=== PATIENT | female | born 1965 | race Hispanic/Latino ===

== ENCOUNTER 2018-12-12 19:35 | Emergency (ER) | payer OTHER ==
--- NOTE | 2018-12-12 20:49 | RAD REPORT ---
EXAM DESCRIPTION: RAD - Foot Left 3 View - 12/12/2018 8:39 pm CLINICAL HISTORY: Left Foot pain FINDINGS: No fracture or dislocation is seen. Small to moderate calcaneal spur
--- NOTE | 2018-12-12 21:09 | ER ---
Nurse's Notes [facility] Name: Lucy Talley Age: 53 yrs Sex: Female : 1965 Arrival Date: 12/12/2018 Time: 19:42 Bed 11 Private MD: Diagnosis: Plantar fascial fibromatosis;Calcaneal spur, left foot Presentation: 12/12 19:58 Presenting complaint: Patient states: "My left heel has been hurting for some time now, jd3 but I have been dealing with it. recently it has been hurting me to the point it is hard to walk.". Transition of care: patient was not received from another setting of care. Onset of symptoms was December 08, 2018. Risk Assessment: Do you want to hurt yourself or someone else? Patient reports no desire to harm self or others. Initial Sepsis Screen: Does the patient meet any 2 criteria? No. Patient's initial sepsis screen is negative. Does the patient have a suspected source of infection? No. Patient's initial sepsis screen is negative. Care prior to arrival: None. 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 - Social history:: Smoking status: Patient/guardian denies using tobacco. - Ebola Screening: : Patient negative for fever greater than or equal to 101.5 degrees Fahrenheit, and additional compatible Ebola Virus Disease symptoms. Screenin:20 Abuse screen: Denies threats or abuse. Denies injuries from another. Nutritional lp1 screening: No deficits noted. Tuberculosis screening: No symptoms or risk factors identified. Fall Risk None identified. Assessment: 20:30 General: Appears uncomfortable, Behavior is calm. Pain: Complains of pain in heel of lp1 left foot Pain currently is 8 out of 10 on a pain scale. Quality of pain is described as sharp, Aggravated by increased activity, weight bearing. Neuro: No deficits noted. Cardiovascular: No deficits noted. Respiratory: No deficits noted. GI: No deficits noted. : No deficits noted. EENT: No deficits noted. Derm: Skin is pink, warm \\T\\ dry. Musculoskeletal: No deficits noted. Vital Signs: 20:02 BP 165 / 77; Pulse 86; Resp 17 S; Temp 97.8(O); Pulse Ox 99% on R/A; Weight 70.31 kg jd3 (R); Height 5 ft. 3 in. (160.02 cm) (R); Pain 10/10; 20:02 Body Mass Index 27.46 (70.31 kg, 160.02 cm) jd3 ED Course: 19:42 Patient arrived in ED. es 20:00 Triage completed. jd3 20:02 Arm band placed on. jd3 20:19 Jeny Amos, KANG is Primary Nurse. lp1 20:20 Patient has correct armband on for positive identification. lp1 20:40 Foot Left 3 View XRAY In Process Unspecified. EDMS 20:49 Amrik Walters NP is PHCP. pm1 20:49 Humberto Cotto MD is Attending Physician. pm1 21:28 No provider procedures requiring assistance completed. Patient did not have IV access lp1 during this emergency room visit. Crutch training done. Administered Medications: 21:15 Drug: predniSONE 60 mg Route: PO; lp1 21:27 Follow up: Response: Medication administered at discharge. lp1 21:15 Drug: Ulmer 5 mg-325 mg 1 tabs Route: PO; lp1 21:28 Follow up: Response: Medication administered at discharge. lp1 Outcome: 21:08 Discharge ordered by . pm1 21:29 Discharged to home with crutches, with significant other. lp1 21:29 Condition: good 21:29 Discharge instructions given to patient, Instructed on discharge instructions, follow up and referral plans. medication usage, Demonstrated understanding of instructions, follow-up care, medications, Prescriptions given X 2. 21:29 Patient left the ED. lp1 Signatures: Dispatcher [employer] Ioana Anglin Laura, RN RN lp1 Amrik Walters, CINDY EMERGENCY SERVICES PROFESSIONAL pm1 Dion Haynes RN RN jd3 Corrections: (The following items were deleted from the chart) 20:20 19:58 Presenting complaint: Patient states: "My left heal has been hurting for some jd3 time now, but I have been dealing with it. recently it has been hurting me to the point it is hard to walk." jd3
--- NOTE | 2018-12-12 21:09 | EDPHYS ---
Physician Documentation [facility] Name: Lucy Talley Age: 53 yrs Sex: Female : 1965 Arrival Date: 12/12/2018 Time: 19:42 Bed 11 Private MD: ED Physician Humberto Cotto HPI: 12/12 20:50 This 53 yrs old Female presents to ER via Wheelchair with complaints of Heel pm1 Pain. 12/13 03:40 The patient presents with pain. The complaints affect the left foot, heel of left foot. pm1 Context: The problem was sustained at an unknown location, resulted from an unknown cause, the patient can fully bear weight, the patient is able to ambulate. Onset: The symptoms/episode began/occurred 1 month(s) ago. Modifying factors: The symptoms are alleviated by nothing, the symptoms are aggravated by weight bearing. Associated signs and symptoms: Pertinent negatives: calf tenderness, numbness, tingling. Severity of symptoms: in the emergency department the symptoms are actually worse. The patient has not experienced similar symptoms in the past. The patient has not recently seen a physician. 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 - Social history:: Smoking status: Patient/guardian denies using tobacco. - Ebola Screening: : Patient negative for fever greater than or equal to 101.5 degrees Fahrenheit, and additional compatible Ebola Virus Disease symptoms. ROS: 12/13 03:40 MS/extremity: Positive for pain, of the heel of left foot. pm1 Constitutional: Negative for fever, chills, and weight loss, Eyes: Negative for injury, pain, redness, and discharge, ENT: Negative for injury, pain, and discharge, Neck: Negative for injury, pain, and swelling, Cardiovascular: Negative for chest pain, palpitations, and edema, Respiratory: Negative for shortness of breath, cough, wheezing, and pleuritic chest pain, Abdomen/GI: Negative for abdominal pain, nausea, vomiting, diarrhea, and constipation, Back: Negative for injury and pain, : Negative for injury, bleeding, discharge, and swelling, Skin: Negative for injury, rash, and discoloration, Neuro: Negative for headache, weakness, numbness, tingling, and seizure. Exam: 03:40 Constitutional: This is a well developed, well nourished patient who is awake, alert, pm1 and in no acute distress. Head/Face: Normocephalic, atraumatic. Chest/axilla: Normal chest wall appearance and motion. Nontender with no deformity. No lesions are appreciated. Cardiovascular: Regular rate and rhythm with a normal S1 and S2. No gallops, murmurs, or rubs. Normal PMI, no JVD. No pulse deficits. Respiratory: Lungs have equal breath sounds bilaterally, clear to auscultation and percussion. No rales, rhonchi or wheezes noted. No increased work of breathing, no retractions or nasal flaring. Back: No spinal tenderness. No costovertebral tenderness. Full range of motion. Skin: Warm, dry with normal turgor. Normal color with no rashes, no lesions, and no evidence of cellulitis. 03:40 Musculoskeletal/extremity: Extremities: grossly normal except: noted in the arch of left foot and heel of left foot: pain, tenderness. Vital Signs: 12/12 20:02 BP 165 / 77; Pulse 86; Resp 17 S; Temp 97.8(O); Pulse Ox 99% on R/A; Weight 70.31 kg jd3 (R); Height 5 ft. 3 in. (160.02 cm) (R); Pain 10/10; 20:02 Body Mass Index 27.46 (70.31 kg, 160.02 cm) jd3 MDM: 20:49 Patient medically screened. pm1 21:06 Data reviewed: vital signs. Data interpreted: Pulse oximetry: on room air is 99 %. pm1 Interpretation: normal. Counseling: I had a detailed discussion with the patient and/or guardian regarding: the historical points, exam findings, and any diagnostic results supporting the discharge/admit diagnosis, radiology results, the need for outpatient follow up, to return to the emergency department if symptoms worsen or persist or if there are any questions or concerns that arise at home. 12/12 20:20 Order name: Foot Left 3 View XRAY; Complete Time: 20:50 lp1 12/12 21:21 Order name: Crutches; Complete Time: 21:28 pm1 Administered Medications: 21:15 Drug: predniSONE 60 mg Route: PO; lp1 21:27 Follow up: Response: Medication administered at discharge. lp1 21:15 Drug: Dane 5 mg-325 mg 1 tabs Route: PO; lp1 21:28 Follow up: Response: Medication administered at discharge. lp1 Disposition: 12/13 09:07 Co-signature as Attending Physician, Humberto Cotto MD I agree with the assessment and lauryn plan of care. Disposition: 12/12/18 21:08 Discharged to Home. Impression: Plantar fascial fibromatosis, Calcaneal spur, left foot. - Condition is Stable. - Discharge Instructions: Heel Spur, Plantar Fasciitis. - Prescriptions for Tylenol- Codeine #3 300-30 mg Oral Tablet - take 2 tablets by ORAL route every 6 hours As needed; 20 tablet. Medrol (Vicente) 4 mg Oral Tablets, Dose Pack - take 1 tablet by ORAL route as directed - follow package instructions; 1 packet. - Medication Reconciliation Form, Thank You Letter, Antibiotic Education, Prescription Opioid Use form. - Follow up: Emergency Department; When: As needed; Reason: Worsening of condition. Follow up: Private Physician; When: 2 - 3 days; Reason: Recheck today's complaints, Continuance of care, Re-evaluation by your physician. - Problem is new. - Symptoms have improved. Signatures: Dispatcher [employer] Humberto Velasco MD MD cha Pena, Laura RN RN lp1 Amrik Walters NP CAN FEEDER pm1 Dion Haynes RN RN jd3 Corrections: (The following items were deleted from the chart) 12/12 21:29 21:08 12/12/2018 21:08 Discharged to Home. Impression: Plantar fascial fibromatosis; lp1 Calcaneal spur, left foot. Condition is Stable. Forms are Medication Reconciliation Form, Thank You Letter, Antibiotic Education, Prescription Opioid Use. Follow up: Emergency Department; When: As needed; Reason: Worsening of condition. Follow up: Private Physician; When: 2 - 3 days; Reason: Recheck today's complaints, Continuance of care, Re-evaluation by your physician. Problem is new. Symptoms have improved. pm1
[2018-12-12] MEDS ORDERED: HYDROCODONE/APAP 5/325 MG TAB ONE (21:27)
[2018-12-12] MEDS ORDERED: predniSONE 20 MG TAB ONE (21:27)
== END 2018-12-12 21:29 | disposition home or self-care (01) ==
LOC: EDBD 19:35 → ER 19:35
DX: M72.2 Plantar fascial fibromatosis (principal); M77.32 Calcaneal spur, left foot
CPT/HCPCS: 99284; J7512

== ENCOUNTER 2020-04-08 11:27 | Emergency (ER) | payer OTHER ==
--- OUTSIDE RECORDS SUMMARY | 2020-04-08 12:09 | XMS REPORT ---
:1965 Author Organization [employer] Care Team Providers Name Role Phone FranciscoZain baker Provider Role Unavailable Allergies, Adverse Reactions, Alerts Substance Reaction Event Type Latex Info Not Available Drug Allergy Problems Problem Type Condition Code Onset Dates Condition Statu s Problem Allergic rhinitis J30.9 Active Problem Seasonal allergies J30.2 Active Problem Mixed hyperlipidemia E78.2 Active Assessment Arthritis of knee, right M17.11 Act gary Assessment Pain in joint of right knee M25.561 Active Problem Vitamin D deficiency E55.9 Active Problem Abnormal mammogram R92.8 Active Problem Other chronic pain G89.29 Active Problem Arthritis of knee, right M17.11 Act gary Problem High cholesterol E78.00 Active Problem Cervical radiculopathy due to M47.22 Active degenerative joint disease of spine Problem Degenerative cervical disc M50.30 A ctive Problem Carpal tunnel syndrome on both G56.03 Active sides Medications Medication Code Code Instructions Start End Status Dosage System Date Date Naproxen ND 44032601697 500 MG Orally Active 1 tab let with every 12 hrs food or mil k as needed Ergocalciferol ND 55303598821 79954 UNIT December Active 1 capsule Orally once a 09, 07, week 2019 2019 Meloxicam ND 66866838505 15 MG Orally December Active 1 tab let Once a day prn 06, 04, pain 2020 2019 Diclofenac Sodium ND 08318853278 1 % December Active 2 gram Transdermal , 04, application Three times a 2019 2019 to affecte d day area Tylenol # 3 NDC 0 300/30mg PO Active one tab once a day PRN Results No Known Results Summary Purpose [employer]ClinicalWorks Submission
--- OUTSIDE RECORDS SUMMARY | 2020-04-08 12:09 | XMS REPORT ---
:1965 Author Organization [employer] Care Team Providers Name Role Phone Jean-Baptiste, Na Provider Role Unavailable Allergies No Known Allergies Problems Problem Type Condition Code Onset Dates Condition Statu s Problem Allergic rhinitis J30.9 Active Problem Seasonal allergies J30.2 Active Problem Mixed hyperlipidemia E78.2 Active Assessment Left knee pain, unspecified M25.562 Active chronicity Problem Vitamin D deficiency E55.9 Active Problem Abnormal mammogram R92.8 Active Problem Other chronic pain G89.29 Active Problem Arthritis of knee, right M17.11 Act gary Problem High cholesterol E78.00 Active Problem Cervical radiculopathy due to M47.22 Active degenerative joint disease of spine Problem Degenerative cervical disc M50.30 A ctive Problem Carpal tunnel syndrome on both G56.03 Active sides Medications No Known Medications Results No Known Results Summary Purpose eClinicalWorks Submission
--- OUTSIDE RECORDS SUMMARY | 2020-04-08 12:09 | XMS REPORT ---
:1965 Author Organization [employer] Care Team Providers Name Role Phone Jean-Baptiste, Na Provider Role Unavailable Allergies No Known Allergies Problems Problem Type Condition Code Onset Dates Condition Statu s Problem Allergic rhinitis J30.9 Active Problem Seasonal allergies J30.2 Active Problem Mixed hyperlipidemia E78.2 Active Assessment Abnormal finding on breast imaging R92.8 Active Problem Vitamin D deficiency E55.9 Active Problem Abnormal mammogram R92.8 Active Problem Other chronic pain G89.29 Active Problem Arthritis of knee, right M17.11 Act gary Problem High cholesterol E78.00 Active Problem Cervical radiculopathy due to M47.22 Active degenerative joint disease of spine Problem Degenerative cervical disc M50.30 A ctive Problem Carpal tunnel syndrome on both sides G56.03 Active Medications No Known Medications Results No Known Results Summary Purpose eClinicalWorks Submission
--- OUTSIDE RECORDS SUMMARY | 2020-04-08 12:09 | XMS REPORT | Continuity of Care Document ---
:1965 Author Organization [facility] t Address [address] [place] [address] Care Team Providers Name Role Phone Unavailable Unavailable Unavailable Problems This patient has no known problems. Allergies, Adverse Reactions, Alerts Allergy Allergy Status Severity Reaction(s) Onset Inactive Treating Comm ents Source Name Type Date Date Clinician Latex Adverse Active Info Not [facility] Reaction Available [facility] Medications Ordered Filled Start Stop Current Ordering Indication Dosage Frequency Signature Comments Components Source Medication Medication Date Date Medication? Clinician (SIG) Name Name MethylPREDN MethylPREDN Yes Zain as [facility] ISolone ISolone 02-19 Francisco directed [facility] Ergocalcife Ergocalcife 2020- No Zain [address] [facility] rol rol 12-20 Francisco [facility] Diclofenac Diclofenac 2019-0 2020- No Zain [address] [facility] Sodium Sodium 12-17 Francisco applicatio [facility] - 00:00: 00:00 n to [facility] 00 :00 affected l area Out[facility] ent Clinics Naproxen Naproxen Yes Zain [address] [facility] Francisco with food [facility] - or milk as [facility] needed [facility] Tylenol # 3 Tylenol # 3 Yes Zain one tab [facility] Francisco [facility] Procedures This patient has no known procedures. Encounters Start End Encounter Admission Attending Care Care Encounter Source Date/Time Date/Time Type Type Clinicians Facility Department ID 2020-03-27 2020-03-27 Outpatient [facility] [id number] [facility] 2020-03-25 2020-03-25 [facility] [id number] 2020-03-18 2020-03-18 [facility] [id number] [facility] 2020-03-11 2020-03-11 [facility] [id number] [facility] 2020-03-01 2020-03-01 [facility] [id number] [facility] 2020-02-28 2020-02-28 [facility] [id number] [facility] 15[facility]23:00 15:23:00 [facility] 2020-02-26 2020-02-26 [facility] [id number] [facility] 16:34:00 16:34:00 t [facility] 2020-02-21 2020-02-21 [facility] [id number] 12:58:00 12:58:00 t [facility] 2020-02-20 2020-02-20 [facility] [id number] 08:00:00 08:00:00 t [facility] 2020-01-16 2020-01-16 [facility] [id number] 12:38:00 12:38:00 t [employer] [facility] ent [facility] 2020-01-09 2020-01-09 [facility] [id number] 14:46:00 14:46:00 t [employer]mer [employer] SARL [facility] Medicine Medicine Outpati ent Clinics 2020-01-08 2020-01-08 [facility] [id number] 08:30:00 08:30:00 t [facility] ent Clinics 2019-12-21 2019-12-21 [facility] [id number] [address] 04:23:00 04:23:00 t [employer] SARL [facility] Medicine l Medicine Outpati ent Clinics 2019-12-18 2019-12-18 [facility] [id number] 16:20:00 16:20:00 t Aceris [employer] [facility] Medicine Medicine Outpati ent Clinics 2019-11-30 2019-11-30 [facility] [id number] [address] 19:31:00 19:31:00 t Ulmer [employer] Sidelines [facility] Medicine Medicine Outpati ent Clinics 2019-11-02 2019-11-02 [facility] [id number] 15:10:00 15:10:00 t Aceris 3D Inspection [facility] Medicine Outpati ent Clinics 2019-06-02 2019-06-02 [facility] [id number] [facility] 16:00:00 16:00:00 t [employer] Sidelines [facility] Medicine Medicine Outpati ent Clinics 2019-05-05 2019-05-05 [facility] [id number] [facility] 16:20:00 16:20:00 t Ulmer [employer] Sidelines [facility] Medicine Outpati ent Clinics 2019-04-27 2019-04-27 [facility] [id number] [facility] 17:02:00 17:02:00 t Ulmer [employer] Sidelines [facility] Medicine Outpati ent Clinics 2019-04-04 2019-04-04 [facility] [id number] 14:00:00 14:00:00 t Ulmer [employer] SARL [facility] Medicine Outpati ent Clinics Results This patient has no known results.
--- OUTSIDE RECORDS SUMMARY | 2020-04-08 12:10 | XMS REPORT ---
:1965 Author Organization [facility] Address [address] [facility] [place] [address] Care Team Providers Name Role Phone Francisco Unavailable [phone] PROBLEMS Type Condition ICD9-CM [id number] Onset Condition SNOMED Code Notes Code Code Dates Status Problem Seasonal J30.2 Active 401835568 allergies Problem Cervical M47.22 Active 491033471 radiculopathy due to degenerative joint disease of spine Problem High cholesterol E78.00 Active 45188697 Problem Vitamin D E55.9 Active 75150507 deficiency Problem Arthritis of M17.11 Active 8451302886551535 knee, right Problem Mixed E78.2 Active 271568703 hyperlipidemia Problem Primary M17.12 Active 407626658177208 osteoarthritis of left knee Problem Allergic J30.9 Active 37382339 rhinitis Problem Carpal tunnel G56.03 Active 09659604505268407 syndrome on both sides Problem Degenerative M50.30 Active 44994302 cervical disc Problem Other chronic G89.29 Active 99844963 pain Problem Abnormal R92.8 Active 275531668 mammogram ALLERGIES Allergen (clinical drug Drug/Non Drug Allergy Reaction Allergy Type Onset Date Status ingredient) documented on EMR Latex Unknown Drug Allergy Active ENCOUNTERS from 1965 to 2020-03-21 Encounter Location Date Provider Diagnosis [facility] [address] Mar, Zain Francisco Arth ritis of knee, [facility] 1 [place], right M17.11 and [facility] [address] Pain in joint of right knee M25. 561 IMMUNIZATIONS Vaccine Route Administration Date Status Bupivicaine [place] Unknown Mar 11, 2020 Administered Bupivicaine [place] Unknown January 08, 2020 Administered Hyalgan 20 mg Unknown Mar 18, 2020 Administered Hyalgan 20 mg Unknown Mar 11, 2020 Administered Kenalog (Triamcinolone) Unknown Mar 11, 2020 Administ ereoskar Kenalog (Triamcinolone) Unknown January 08, 2020 Administ luana SOCIAL HISTORY Tobacco Use: Social History Observation Description Date Details (start date - stop date) Never Smoker Sex Assigned At : Social History Observation Description Sex Assigned At Unknown PHQ9 Question Answer Notes Little interest or pleasure in doing things Not at all Feeling down, depressed, or hopeless Not at all Trouble falling or staying asleep or sleeping too much Nearl y every day Feeling tired or having little energy Nearly every day Poor appetite or overeating Not at all Feeling bad about yourself, or that you are a failure, or jenkins ve Not at all let yourself or your family down Trouble concentrating on things, such as reading the newspap er Not at all or watching television Moving or speaking so slowly that other people could have No t at all noticed; or the opposite, being so fidgety or restless that you have been moving around a lot more than usual Total Score 6 Interpretation Mild Depression Thoughts that you would be better off or of hurting Not at all yourself in some way Alcohol Screen Question Answer Notes Did you have a drink containing alcohol in the past year? No Points 0 Interpretation Negative Tobacco Use/Smoking Question Answer Notes Are you a never smoker Additional Findings: Tobacco Non-User Current non-smoker REASON FOR REFERRAL No Information VITAL SIGNS Height 63.00 in Mar, Weight 160 lbs Mar, BMI 28.34 kg/m2 Mar, Blood pressure systolic 134 mm Hg Mar, Blood pressure diastolic 98 mm Hg Mar, MEDICATIONS Medication SIG (Take, Route, Frequency, Start Date End Date Status Duration) Naproxen 500 MG 1 tablet with food or milk Not-Taking as needed Orally every 12 hrs Tylenol # 3 300/30mg one tab PO once a day PRN Not-Taking MethylPREDNISolone 4 MG as directed Orally Feb, Not-Taking PROCEDURES No Information RESULTS No Results REASON FOR VISIT 2ND HYALGAN INJ RT KNEE MEDICAL (GENERAL) HISTORY Type Description Date Medical History High cholesterol Medical History Allergic rhinitis Surgical History appendectomy 1985 Surgical History hysterectomy 2005 Surgical History left knee 2009 Surgical History right knee 2009 Goals Section No Information Health Concerns No Information MEDICAL EQUIPMENT No Information MENTAL STATUS No Information FUNCTIONAL STATUS No Information ASSESSMENTS Encounter Date Diagnosis Notes Mar, Pain in joint of right knee (ICD-10 - M2 5.561) Mar, Arthritis of knee, right (ICD-10 - M17.1 1) PLAN OF TREATMENT Treatment Notes Assessment Notes Clinical Notes Arthritis of knee, right I discussed with the patient at [facility] her diagnosis and treatment plan and she expressed understanding. She underwent h er 2nd right knee hyalgan injection without complication. She was instructed to ice and rest the knee for 24 hours. She will followup in 1 week for her 3rd injection of the series. Next Appt Details 1 Week Reason: Provider Name:Zain Francisco, 2020-03-25 0 8:00:00 AM, [address], [place], [address], Insurance Providers Payer Name Payer Payer Insured Name Patient Coverage Covera End Address Phone Relationship to Start Date Gabo e Insured [address] [phone] Cristy Talley self [address] [employer] [address] [place] [id number]
--- OUTSIDE RECORDS SUMMARY | 2020-04-08 12:10 | XMS REPORT ---
:1965 Author Organization [employer] Care Team Providers Name Role Phone Francisco Zain Provider Role Unavailable Allergies No Known Allergies Problems Problem Type Condition Code Onset Dates Condition Statu s Problem Mixed hyperlipidemia E78.2 Active Problem Cervical radiculopathy due to M47.22 Active degenerative joint disease of spine Problem Seasonal allergies J30.2 Active Problem Vitamin D deficiency E55.9 Active Problem Allergic rhinitis J30.9 Active Problem Arthritis of knee, right M17.11 Act gary Problem Abnormal mammogram R92.8 Active Problem Primary osteoarthritis of left knee M17.12 Active Problem Carpal tunnel syndrome on both sides G56.03 Active Problem High cholesterol E78.00 Active Problem Other chronic pain G89.29 Active Problem Degenerative cervical disc M50.30 A ctive Medications No Known Medications Results No Known Results Summary Purpose eClinicalWorks Submission
--- OUTSIDE RECORDS SUMMARY | 2020-04-08 12:10 | XMS REPORT ---
:1965 Author Organization [facility] Address [address] [place] [address] Care Team Providers Name Role Phone Francisco Unavailable [phone] PROBLEMS Type Condition ICD9-CM [id number] Onset Condition SNOMED Code Notes Code Code Dates Status Problem Seasonal J30.2 Active 014543724 allergies Problem Cervical M47.22 Active 223367448 radiculopathy due to degenerative joint disease of spine Problem High cholesterol E78.00 Active 56434953 Problem Vitamin D E55.9 Active 86118681 deficiency Problem Arthritis of M17.11 Active 0282385471560327 knee, right Problem Mixed E78.2 Active 078553660 hyperlipidemia Problem Primary M17.12 Active 750913692038662 osteoarthritis of left knee Problem Allergic J30.9 Active 70393388 rhinitis Problem Carpal tunnel G56.03 Active 44694102668490802 syndrome on both sides Problem Degenerative M50.30 Active 50717416 cervical disc Problem Other chronic G89.29 Active 21056322 pain Problem Abnormal R92.8 Active 541936364 mammogram ALLERGIES Allergen (clinical drug Drug/Non Drug Allergy Reaction Allergy Type Onset Date Status ingredient) documented on EMR Latex Unknown Drug Allergy Active ENCOUNTERS from 1966 to 2020-04-01 Encounter Location Date Provider Diagnosis [facility] [address] 12 Mar, 2020 Zain Francisco Arth ritis of knee, [facility] 1 [place], right M17.11 and [facility] [address] Pain in joint of right knee M25. 561 IMMUNIZATIONS Vaccine Route Administration Date Status Bupivicaine [place] Unknown Mar 11, 2020 Administered Bupivicaine [place] Unknown January 08, 2020 Administered Hyalgan 20 mg Unknown Mar 25, 2020 Administered Hyalgan 20 mg Unknown Mar 18, 2020 Administered Hyalgan 20 mg Unknown Mar 11, 2020 Administered Kenalog (Triamcinolone) Unknown Mar 11, 2020 Administ luana Kenalog (Triamcinolone) Unknown January 08, 2020 Administ ereoskar SOCIAL HISTORY Tobacco Use: Social History Observation [...] a drink containing alcohol in the past Yes year? Points 1 Interpretation Negative How often did you have 6 or more drinks on one Never (0 poin ts) occasion in the past year? How many drinks did you have on a typical day when 1 or 2 (0 points) you were drinking in the past year? How often did you have a drink containing alcohol in Monthly or less (1 point) the past year? Tobacco Use/Smoking Question Answer Notes Are you a never smoker Additional Findings: Tobacco Non-User Current non-smoker REASON FOR REFERRAL No Information VITAL SIGNS Height 63.00 in Mar, Weight 160 lbs Mar, BMI 28.34 kg/m2 Mar, Blood pressure systolic 122 mm Hg Mar, Blood pressure diastolic 84 mm Hg Mar, MEDICATIONS Medication SIG (Take, Route, Frequency, Start Date End Date Status Duration) MethylPREDNISolone 4 MG as directed Orally Feb, Not-Taking Tylenol # 3 300/30mg one tab PO once a day PRN Not-Taking Naproxen 500 MG 1 tablet with food or milk Not-Taking as needed Orally every 12 hrs PROCEDURES No Information RESULTS No Results REASON FOR VISIT 3RD HYALGAN INJ RT KNEE MEDICAL (GENERAL) HISTORY Type Description Date Medical History High cholesterol Medical History Allergic rhinitis Surgical History appendectomy 1986 Surgical History hysterectomy 2005 Surgical History left [...] right I discussed with the patient at [facility] her diagnosis and treatment plan and she expressed understanding. She underwent h er 3rd right knee hyalgan injection without complication. She was instructed to ice and rest the knee for 24 hours. She will followup in 2 months for reevaluation. Next Appt Details 2 Months Reason: Provider Name:Zain Kraftga, 2020-05-28 0 8:00:00 AM, [address], [place], [address], Insurance Providers Payer Name Payer Payer Insured Name Patient Coverage Covera End Address Phone Relationship to Start Date Gabo e Insured [address] [phone] Cristy Talley self [address] [facility] [address] [place] [id number]
--- OUTSIDE RECORDS SUMMARY | 2020-04-08 12:10 | XMS REPORT ---
:[address] [facility] Address [address] [place] [place] [address] Care Team Providers Name Role Phone Jean-Baptiste Unavailable [phone] PROBLEMS Type Condition ICD9-CM [id number] Onset Condition SNOMED Code Notes Code Code Dates Status Problem Seasonal J30.2 Active 180094352 allergies Problem Cervical M47.22 Active 291376738 radiculopathy due to degenerative joint disease of spine Problem High cholesterol E78.00 Active 65597796 Problem Vitamin D E55.9 Active 13833610 deficiency Problem Arthritis of M17.11 Active 0337704335714846 knee, right Problem Mixed E78.2 Active 192538644 hyperlipidemia Problem Primary M17.12 Active 833626426880764 osteoarthritis of left knee Problem Allergic J30.9 Active 53190099 rhinitis Problem Carpal tunnel G56.03 Active 67509080543179231 syndrome on both sides Problem Degenerative M50.30 Active 49699274 cervical disc Problem Other chronic G89.29 Active 76847221 pain Problem Abnormal R92.8 Active 535341991 mammogram ALLERGIES Allergen (clinical drug Drug/Non Drug Allergy Reaction Allergy Type Onset Date Status ingredient) documented on EMR Latex Unknown Drug Allergy Active ENCOUNTERS from 1965 to 2020-03-27 Encounter Location Date Provider Diagnosis [facility] [address] [address] Mar, 2020 Na Jean-Baptiste Pain in [facility] [place], [place] right kn ee M25.561 [address] and Pain, joint , knee, left M25. 562 IMMUNIZATIONS Vaccine Route Administration Date Status Bupivicaine [place] Unknown Mar 11, 2020 Administered Bupivicaine [place] Unknown January 08, 2020 Administered Hyalgan 20 [...] REASON FOR REFERRAL No Information VITAL SIGNS No information MEDICATIONS Medication SIG (Take, Route, Frequency, Start Date End Date Status Duration) MethylPREDNISolone 4 MG as directed Orally Feb, Not-Taking Tylenol # 3 300/30mg one tab PO once a day PRN Not-Taking Naproxen 500 MG 1 tablet with food or milk Not-Taking as needed Orally every 12 hrs PROCEDURES No Information RESULTS No Results REASON FOR VISIT referral MEDICAL (GENERAL) HISTORY Type Description Date Medical History High cholesterol Medical History Allergic rhinitis Surgical History appendectomy 1985 Surgical History hysterectomy 2004 Surgical History left knee 2009 Surgical History right knee 2008 Goals Section No Information Health Concerns No Information MEDICAL EQUIPMENT No Information MENTAL STATUS No Information FUNCTIONAL STATUS No Information ASSESSMENTS Encounter Date Diagnosis Notes Mar, Pain, joint, knee, left (ICD-10 - M25.56 2) Mar, Pain in joint of right knee (ICD-10 - M2 5.561) PLAN OF TREATMENT Next Appt Details Provider Name:Zain Francisco, 2020-05-28 0 8:00:00 AM, [address] [facility] [address], [place], [address], Insurance Providers Payer Name Payer Payer Insured Name Patient Coverage Covera End Address Phone Relationship to Start Date Gabo e Insured [address] [phone] Cristy Talley self 2018 [facility] [address] [place] [id number]
--- OUTSIDE RECORDS SUMMARY | 2020-04-08 12:10 | XMS REPORT ---
:1965 Author Organization [facility] Address [address], [address] [place] [address] Care Team Providers Name Role Phone Francisco Unavailable [phone] PROBLEMS Type Condition ICD9-CM [id number] Onset Condition SNOMED Code Notes Code Code Dates Status Problem Seasonal J30.2 Active 351102603 allergies Problem Cervical M47.22 Active 514986365 radiculopathy due to degenerative joint disease of spine Problem High cholesterol E78.00 Active 87376986 Problem Vitamin D E55.9 Active 84061755 deficiency Problem Arthritis of M17.11 Active 1685207613870807 knee, right Problem Mixed E78.2 Active 374382876 hyperlipidemia Problem Primary M17.12 Active 500076230864218 osteoarthritis of left knee Problem Allergic J30.9 Active 08343688 rhinitis Problem Carpal tunnel G56.03 Active 49464763024252914 syndrome on both sides Problem Degenerative M50.30 Active 12614956 cervical disc Problem Other chronic G89.29 Active 09974197 pain Problem Abnormal R92.8 Active 740522715 mammogram ALLERGIES Allergen (clinical drug Drug/Non Drug Allergy Reaction Allergy Type Onset Date Status ingredient) documented on EMR Latex Unknown Drug Allergy Active ENCOUNTERS from 1965 to 2020-03-14 Encounter Location Date Provider Diagnosis [facility] [address] Feb, Zain Francisco Arth ritis of knee, [facility] 1 [place], right M17.11 and [facility] [address] Pain in joint of right knee M25. 561 IMMUNIZATIONS Vaccine Route Administration Date Status Bupivicaine [place] Unknown Mar 11, 2020 Administered Bupivicaine [place] Unknown January 08, 2020 Administered Hyalgan 20 mg Unknown Mar 11, 2020 Administered Kenalog (Triamcinolone) Unknown Mar 11, 2020 Administ ereoskar Kenalog (Triamcinolone) Unknown January 08, 2020 Administ ered SOCIAL HISTORY Tobacco Use: Social History Observation [...] No Information VITAL SIGNS Height 63.00 in Feb, Weight 160 lbs Feb, Temperature 97.5 degrees Fahrenheit Feb, BMI 28.34 kg/m2 Feb, Blood pressure systolic 122 mm Hg Feb, Blood pressure diastolic 76 mm Hg Feb, MEDICATIONS Medication SIG (Take, Route, Start Date End Date Status Frequency, Duration) Naproxen 500 MG 1 tablet with food or Not -Taking milk as needed Orally every 12 hrs MethylPREDNISolone 4 MG as directed Orally Feb, Active Ergocalciferol [address]19 UNIT 1 capsule Orally once a Dec, 7 Oc , 2019 Active week for 90 days Tylenol # 3 300/30mg one tab PO once a day Not-Taking PRN Diclofenac Sodium 1 % 2 gram application to Dec,Mar, 0 Active affected area Transdermal Three times a day for 30 day(s) PROCEDURES No Information RESULTS No Results REASON FOR VISIT 1ST HYALGAN & KENALOG INJ RT KNEE MEDICAL (GENERAL) HISTORY Type Description Date Medical History High cholesterol Medical History Allergic rhinitis Surgical History appendectomy 1985 Surgical History hysterectomy 2004 Surgical History left knee 2009 Surgical History right knee 2009 Goals [place] No Information Health Concerns No Information MEDICAL EQUIPMENT No Information MENTAL STATUS No Information FUNCTIONAL STATUS No Information ASSESSMENTS Encounter Date Diagnosis Notes Feb, Pain in joint of right knee (ICD-10 - M2 5.561) Feb, Arthritis of knee, right (ICD-10 - M17.1 1) PLAN OF TREATMENT Treatment Notes Assessment Notes Clinical Notes Arthritis of knee, right I discussed with the patient at [facility] her diagnosis and treatment plan and she expressed understanding. She underwent r ight knee kenalog/hyalgan injection without complication. She was instructed to ice and rest the knee for 24 hours. She will followup in 1 week for her 2nd injection of the series. Next Appt Details 1 Week Reason: Provider Name:Zain Francisco 2020-03-18 1 1:00:00 AM, [address], [place], [address], Provider Name:Carmelita Jean-Baptiste 2020-03-19 04:0 0:00 PM, [address], [address], [place], [address], Provider Name:Zain Francisco 2020-03-25 1 1:00:00 AM, [address], [place], [address], Insurance Providers Payer Name Payer Payer Insured Name Patient Coverage Covera End Address Phone Relationship to Start Date Gabo e Insured [address] [phone] Cristy Talley self [address] [facility] [address] [place] [id number]
--- OUTSIDE RECORDS SUMMARY | 2020-04-08 12:10 | XMS REPORT ---
:1965 Author Organization [employer] Care Team Providers Name Role Phone Zain Francisco Provider Role Unavailable Allergies, Adverse Reactions, Alerts Substance Reaction Event Type Latex Info Not Available Drug Allergy Problems Problem Type Condition Code Onset Dates Condition Statu s Problem Mixed hyperlipidemia E78.2 Active Problem Cervical radiculopathy due to M47.22 Active degenerative joint disease of spine Problem Seasonal allergies J30.2 Active Problem Arthritis of knee, right M17.11 Act gary Problem Abnormal mammogram R92.8 Active Problem Primary osteoarthritis of left M17.12 Active knee Problem Carpal tunnel syndrome on both G56.03 Active sides Problem High cholesterol E78.00 Active Problem Other chronic pain G89.29 Active Problem Degenerative cervical disc M50.30 A ctive Assessment Tear of medial meniscus of right S83.241A Active knee, current, unspecified tear type, initial encounter Assessment Primary osteoarthritis of left M17.12 Active knee Assessment Pain, joint, knee, left M25.562 Acti ve Assessment Pain in joint of right knee M25.561 Active Problem Vitamin D deficiency E55.9 Active Assessment Arthritis of knee, right M17.11 Act gary Problem Allergic rhinitis J30.9 Active Medications Medication Code Code Instructions Start End Status Dosage System Date Date Naproxen ND 22689094311 500 MG Orally Active 1 tab let every 12 hrs with food o r milk as needed Ergocalciferol ND 90326950190 51568 UNIT December Active 1 capsule Orally once a 09, 07, week 2019 2019 MethylPREDNISolone NDC 05088522694 4 MG Orally Sept Activ e as directed 2019 Tylenol # 3 NDC 0 300/30mg PO Active one tab once a day PRN Diclofenac Sodium NDC 34977844136 1 % December Active 2 gram Transdermal , 04, application Three times a 2019 2019 to affecte d day area Results No Known Results Summary Purpose eClinicalWorks Submission
--- OUTSIDE RECORDS SUMMARY | 2020-04-08 12:10 | XMS REPORT ---
:1965 Author Organization [facility] Address [address] , [facility] 1 [place] [address] Care Team Providers Name Role Phone Zain Francisco Unavailable [phone] PROBLEMS Type Condition ICD9-CM [id number] Onset Condition SNOMED Code Notes Code Code Dates Status Problem Seasonal J30.2 Active 411084888 allergies Problem Cervical M47.22 Active 834395289 radiculopathy due to degenerative joint disease of spine Problem High cholesterol E78.00 Active 18820399 Problem Vitamin D E55.9 Active 08870143 deficiency Problem Arthritis of M17.11 Active 6630787592296521 knee, right Problem Mixed E78.2 Active 937495539 hyperlipidemia Problem Primary M17.12 Active 363925193554666 osteoarthritis of left knee Problem Allergic J30.9 Active 53007592 rhinitis Problem Carpal tunnel G56.03 Active 71171825466917062 syndrome on both sides Problem Degenerative M50.30 Active 55843123 cervical disc Problem Other chronic G89.29 Active 07028614 pain Problem Abnormal R92.8 Active 393474802 mammogram ALLERGIES Allergen (clinical drug Drug/Non Drug Allergy Reaction Allergy Type Onset Date Status ingredient) documented on EMR Latex Unknown Drug Allergy Active ENCOUNTERS from 1965 to 2020-03-06 Encounter Location Date Provider Diagnosis [facility] [address] Feb, Zain Francisco Pain , joint, knee, [facility] 1 [place], left M25.562 ; [facility] [address] Arthritis of k nee, right M17.11 an d Pain in joint o f right knee M25. 561 IMMUNIZATIONS No Information SOCIAL HISTORY Sex Assigned At : Social History Observation Description Sex Assigned At Unknown REASON FOR REFERRAL No Information VITAL SIGNS Height 63.00 in Feb, Weight 160 lbs Feb, Temperature 97.3 degrees Fahrenheit Feb, BMI 28.34 kg/m2 Feb, Blood pressure systolic 134 mm Hg Feb, Blood pressure diastolic 81 mm Hg Feb, MEDICATIONS Medication SIG (Take, Route, Start Date End Date Status Frequency, Duration) Ergocalciferol 99328 UNIT 1 capsule Orally once a Dec, 7 Oc 2019 Active week for 90 days MethylPREDNISolone 4 MG as directed Orally Feb, Active Naproxen 500 MG 1 tablet with food or Not -Taking milk as needed Orally every 12 hrs Diclofenac Sodium 1 % 2 gram application to Dec,Mar, 0 Active affected area Transdermal Three times a day for 30 day(s) Tylenol # 3 300/30mg one tab PO once a day Not-Taking PRN PROCEDURES No Information RESULTS No Results REASON FOR VISIT mri results: rt knee pain MEDICAL (GENERAL) HISTORY Type Description Date Medical History High cholesterol Medical History Allergic rhinitis Surgical History appendectomy 1985 Surgical History hysterectomy 2004 Surgical History left knee 2009 Surgical History right knee 2009 Goals [place] No Information Health Concerns No Information MEDICAL EQUIPMENT No Information MENTAL STATUS No Information FUNCTIONAL STATUS No Information ASSESSMENTS Encounter Date Diagnosis Notes Feb, Arthritis of knee, right (ICD-10 - M17.1 1) Feb, Pain, joint, knee, left (ICD-10 - M25.56 2) Feb, Pain in joint of right knee (ICD-10 - M2 5.561) PLAN OF TREATMENT Next Appt Details f/u for right knee kenalog/hyalgan injec tions Reason:
--- NOTE | 2020-04-08 15:04 | RAD REPORT ---
EXAM DESCRIPTION: RAD - Chest Single View - 04/08/2020 2:48 pm CLINICAL HISTORY: COUGH COMPARISON: None TECHNIQUE: AP portable chest image was obtained 04/08/2020 2:48 pm . FINDINGS: Lungs are clear. Heart and vasculature are normal. No measurable pleural effusion and no p neumothorax. No acute bony abnormality seen. No acute aortic findings suspected. IMPRESSION: No acute cardiopulmonary process.
--- NOTE | 2020-04-08 15:43 | ER ---
Nurse's Notes [facility] Name: Lucy Talley Age: 54 yrs Sex: Female : 1965 Arrival Date: 04/08/2020 Time: 11:29 Bed 15 Private MD: Diagnosis: Encounter for screening for other viral diseases;Viral infection, unspecified Presentation: 04/08 12:07 Chief complaint: Patient states: cough, chest pains, headache, loss of taste since this iw weekend. Coronavirus screen: cough unrelated to allergies, headache, loss of taste or smell, Client presents with at least one sign or symptom that may indicate coronavirus-19. Standard/surgical mask placed on the client. Provider contacted for isolation considerations. Ebola Screen: Patient negative for fever greater than or equal to 101.5 degrees Fahrenheit, and additional compatible Ebola Virus Disease symptoms Patient denies exposure to infectious person. Patient denies travel to an Ebola-affected area in the 21 days before illness onset. No symptoms or risks identified at this time. Initial Sepsis Screen: Does the patient meet any 2 criteria? No. Patient's initial sepsis screen is negative. Does the patient have a suspected source of infection? No. Patient's initial sepsis screen is negative. Risk Assessment: Do you want to hurt yourself or someone else? Patient reports no desire to harm self or others. 12:07 Acuity: DON 3 iw 12:07 Method Of Arrival: Ambulatory iw 12:09 Onset of symptoms was April 06, 2020. iw Triage Assessment: 18:36 Pain: Also complains of. iw SUPERINTENDENT HORTICULTURE: 16:00 LMP N/A - Hysterectomy iw Historical: - Allergies: 13:06 No Known Allergies; iw - Home Meds: 13:06 None [Active]; iw - PSHx: 13:06 Appendectomy; Knee surgery; Hysterectomy; iw - Immunization history:: Adult Immunizations up to date. - Social history:: Smoking status: Patient denies any tobacco usage or history of. Screenin:07 Abuse screen: Denies threats or abuse. Denies injuries from another. Nutritional iw screening: No deficits noted. Tuberculosis screening: No symptoms or risk factors identified. Fall Risk None identified. Assessment: 12:30 General: Appears in no apparent distress. comfortable, Behavior is calm, cooperative. iw General:. Pain: Complains of pain in anterior aspect of right upper chest and mid-sternal area. Neuro: Level of Consciousness is awake, alert, obeys commands, Oriented to person, place, time, situation, Moves all extremities. Full function. Neuro: Reports headache. Cardiovascular: Reports chest pain, Patient's skin is warm and dry. Respiratory: Reports cough that is Respiratory effort is even, unlabored, Respiratory pattern is regular, symmetrical. Derm: Skin is intact, is healthy with good turgor. Musculoskeletal: Range of motion: intact in all extremities. 13:50 Reassessment: Patient appears in no apparent distress at this time. Patient and/or iw family updated on plan of care and expected duration. Pain level reassessed. Patient is alert, oriented x 3, equal unlabored respirations, skin warm/dry/pink. Vital Signs: 12:07 BP 149 / 103; Pulse 98; Resp 16 S; Temp 97.7; Pulse Ox 98% on R/A; iw ED Course: 11:29 Patient arrived in ED. ag5 12:07 Noemi Herndon RN is Primary Nurse. iw 12:09 Triage completed. iw 12:09 Arm band placed on. iw 12:17 Martinez Sierra PA is PHCP. jr8 12:17 Humberto Cotto MD is Attending Physician. jr8 12:30 Patient has correct armband on for positive identification. iw 14:48 CXR XRAY In Process Unspecified. EDMS 16:07 No provider procedures requiring assistance completed. Patient did not have IV access iw during this emergency room visit. Administered Medications: No medications were administered Outcome: 15:42 Discharge ordered by . jrDenisse 16:07 Discharged to home ambulatory. iw 16:07 Condition: good 16:07 Discharge instructions given to patient, Instructed on discharge instructions, follow up and referral plans. medication usage, Demonstrated understanding of instructions, follow-up care, medications, Prescriptions given X 3. 16:08 Patient left the ED. Signatures: Dispatcher [employer] EDKY Noemi Herndon RN RN Martinez Sierra PA PA jr8 [employer] ag5
--- NOTE | 2020-04-08 15:43 | EDPHYS ---
Physician Documentation [facility] Name: Lucy Talley Age: 54 yrs Sex: Female : 1965 Arrival Date: 04/08/2020 Time: 11:29 Bed 15 Private MD: ED Physician Humberto Cotto HPI: 04/08 13:47 This 54 yrs old Female presents to ER via Ambulatory with complaints of jr8 Headache, Cough, Chest Pain. 13:47 The patient complains of pain to the forehead. Onset: The symptoms/episode jr8 began/occurred gradually. Associated signs and symptoms: Pertinent positives: cough, chills, loss of taste, shortness of breath. The patient has not experienced similar symptoms in the past. The patient has not recently seen a physician. 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 - Social history:: Smoking status: Patient denies any tobacco usage or history of. ROS: 13:47 Eyes: Negative for injury, pain, redness, and discharge, ENT: Negative for injury, jr8 pain, and discharge, Neck: Negative for injury, pain, and swelling, Cardiovascular: Negative for chest pain, palpitations, and edema, Abdomen/GI: Negative for abdominal pain, nausea, vomiting, diarrhea, and constipation, Back: Negative for injury and pain, MS/Extremity: Negative for injury and deformity, Skin: Negative for injury, rash, and discoloration, Neuro: Negative for weakness, numbness, tingling, and seizure. Positive for headache 13:47 Respiratory: Positive for cough, shortness of breath. Exam: 13:47 Eyes: Pupils equal round and reactive to light, extra-ocular motions intact. Lids and jr8 lashes normal. Conjunctiva and sclera are non-icteric and not injected. Cornea within normal limits. Periorbital areas with no swelling, redness, or edema. ENT: Nares patent. No nasal discharge, no septal abnormalities noted. Tympanic membranes are normal and external auditory canals are clear. Oropharynx with no redness, swelling, or masses, exudates, or evidence of obstruction, uvula midline. Mucous membranes moist. Neck: Trachea midline, no thyromegaly or masses palpated, and no cervical lymphadenopathy. Supple, full range of motion without nuchal rigidity, or vertebral point tenderness. No Meningismus. Cardiovascular: Regular rate and rhythm with a normal S1 and S2. No gallops, murmurs, or rubs. Normal PMI, no JVD. No pulse deficits. Respiratory: Lungs have equal breath sounds bilaterally, clear to auscultation and percussion. No rales, rhonchi or wheezes noted. No increased work of breathing, no retractions or nasal flaring. Abdomen/GI: Soft, non-tender, with normal bowel sounds. No distension or tympany. No guarding or rebound. No evidence of tenderness throughout. Back: No spinal tenderness. No costovertebral tenderness. Full range of motion. Skin: Warm, dry with normal turgor. Normal color with no rashes, no lesions, and no evidence of cellulitis. MS/ Extremity: Pulses equal, no cyanosis. Neurovascular intact. Full, normal range of motion. Neuro: Awake and alert, GCS 15, oriented to person, place, time, and situation. Cranial nerves II-XII grossly intact. Motor strength 5/5 in all extremities. Sensory grossly intact. Cerebellar exam normal. Normal gait. Vital Signs: 12:07 BP 149 / 103; Pulse 98; Resp 16 S; Temp 97.7; Pulse Ox 98% on R/A; iw MDM: 12:18 Patient medically screened. jr8 15:31 Data reviewed: vital signs, nurses notes, lab test result(s), radiologic studies, plain jr8 films. Data interpreted: Pulse oximetry: on room air is 98 %. Interpretation: normal. Counseling: I had a detailed discussion with the patient and/or guardian regarding: the historical points, exam findings, and any diagnostic results supporting the discharge/admit diagnosis, lab results, radiology results, the need for outpatient follow up, a family practitioner, to return to the emergency department if symptoms worsen or persist or if there are any questions or concerns that arise at home. 04/08 13:39 Order name: Influenza Screen (a \T\ B); Complete Time: 15:46 jr8 04/08 13:39 Order name: COVID-19; Complete Time: 16:09 jr8 04/08 13:45 Order name: CXR XRAY; Complete Time: 15:31 iw Administered Medications: No medications were administered Disposition: 04/09 07:58 Co-signature as Attending Physician, Humberto oCtto MD I agree with the assessment and lauryn plan of care. Disposition: 04/08/20 15:42 Discharged to Home. Impression: Encounter for screening for other viral diseases, Viral infection, unspecified. - Condition is Stable. - Discharge Instructions: Viral Respiratory Infection, COVID-19. - Prescriptions for Fioricet 50- 325-40 mg Oral tablet - take 2 tablet by ORAL route every 4 hours as needed not to exceed 6 tablets per 24hrs; 20 tablet. Prednisone 20 mg Oral Tablet - take 1 tablet by ORAL route 2 times per day for 7 days; 14 tablet. Flovent HFA 110 mcg/actuation Inhalation Aerosol - inhale 2 puffs by INHALATION route 2 times per day; 1 Inhaler. - Medication Reconciliation Form, Thank You Letter, Antibiotic Education, Prescription Opioid Use form. - Follow up: Private Physician; When: As needed; Reason: Recheck today's complaints, Continuance of care, Re-evaluation by your physician. - Problem is new. - Symptoms have improved. - Notes: As per CDC guidlines: Can utilized Vitamin C, Vitamin D, and Zinc as adjunctive medications to aid in covid related illness. At your discression if you would like to use them Addendum: 04/10/2020 12:55 Addendum: Positive COVID result called to pt. . k b Signatures: Dispatcher [employer] EDTracy Bowen, RN FIRST ASSIST-C RN FIRST ASSIST-Humberto Hoyt MD MD cha Williams, Irene, RN RN iw Roszak, Josh, PA PA jr8 Corrections: (The following items were deleted from the chart) 04/08 16:08 15:42 04/08/2020 15:42 Discharged to Home. Impression: Encounter for screening for iw other viral diseases; Viral infection, unspecified. Condition is Stable. Forms are Medication Reconciliation Form, Thank You Letter, Antibiotic Education, Prescription Opioid Use. Follow up: Private Physician; When: As needed; Reason: Recheck today's complaints, Continuance of care, Re-evaluation by your physician. Problem is new. Symptoms have improved. jr8
[2020-04-08 16:36] VITALS: BP 149/103; TEMP 97.7; O2SAT 98
== END 2020-04-08 16:08 | disposition home or self-care (01) ==
LOC: ER 11:27
DX: U07.1 COVID-19 (principal); B34.9 Viral infection, unspecified
CPT/HCPCS: 87804 ×2; 71045; 99283; U0002